=== PATIENT | female | born 1965 | race Caucasian/White ===

== ENCOUNTER 2024-05-18 09:00 | Day surgery (SDC) | payer BC ==
[~2024-05-18 09:00] MED LIST: Midazolam 1 MG/ML 2 ML SDV ONE; Propofol 200 MG/20 ML SDV ONE; Sodium Chloride 0.9% 10 ML Syringe FLUSH PRN
[2024-05-18] MEDS: Lactated Ringers 1,000 ML IV SCH (09:47)
[2024-05-18 10:52] VITALS: PULSE 71
[2024-05-18 10:57] VITALS: BP 127/70
== END 2024-05-18 11:07 | disposition home or self-care (01) ==
LOC: LL.SDS 09:00
PROVIDERS: ATTEND Surgery
DX: Z12.11 Encounter for screening for malignant neoplasm of colon (principal); K62.1 Rectal polyp; E11.21 Type 2 diabetes mellitus with diabetic nephropathy; I10 Essential (primary) hypertension; E11.9 Type 2 diabetes mellitus without complications; E78.5 Hyperlipidemia, unspecified; D64.9 Anemia, unspecified; Z88.2 Allergy status to sulfonamides; Z88.8 Allergy status to other drugs, medicaments and biological substances; Z91.048 Other nonmedicinal substance allergy status; Z79.899 Other long term (current) drug therapy
CPT/HCPCS: 45380; 82947; J2250; J2704; J7120

== ENCOUNTER 2025-02-02 12:49 | Emergency (ER) | payer BC ==
[2025-02-02] MEDS: Bacitracin/Neomycin/Polymyxin B Oint 0.9 GM U/D Packet TOP ONE (13:12)
[2025-02-02] MEDS: Lidocaine 1% 5 ML VIAL INJECT ONE (13:12)
[2025-02-02 20:34] VITALS: BP 130/88; PULSE 64
== END 2025-02-02 13:30 | disposition home or self-care (01) ==
LOC: LL.ED 12:49
DX: S60.551A Superficial foreign body of right hand, initial encounter (principal); E78.00 Pure hypercholesterolemia, unspecified; I10 Essential (primary) hypertension; E11.9 Type 2 diabetes mellitus without complications; Z91.048 Other nonmedicinal substance allergy status; Z88.2 Allergy status to sulfonamides; Z88.8 Allergy status to other drugs, medicaments and biological substances; Z79.82 Long term (current) use of aspirin; Z79.84 Long term (current) use of oral hypoglycemic drugs; Z79.899 Other long term (current) drug therapy; W45.8XXA Other foreign body or object entering through skin, initial encounter; Y93.89 Activity, other specified
CPT/HCPCS: 99283; J2003